=== PATIENT | male | born 1955 | race Two or more races ===

== ENCOUNTER 2024-10-16 12:11 | Emergency (ER) | payer SELFPAY ==
[2024-10-16 12:39] VITALS: BP 167/113; BP 170/103; PULSE 71; RESP 18; TEMP 37.3; O2SAT 99; BMI 33.7
--- NOTE | 2024-10-16 13:05 | XR_ITS ---
Examination: PA lateral chest 2 views Technique: Upright PA lateral chest 2 views Exam date and time: October 16, 2024 1523 hrs. Comparison November 04, 2020 Indications: Chest pain abdominal pain beginning 2 days ago. Findings: Mild prominence of ventricle Ectatic thoracic aorta. No pneumonia or pulmonary edema Moderate thoracic spondylosis Impression: No pneumonia or pulmonary edema
--- NOTE | 2024-10-16 13:05 | EKG_ITS ---
[facility] Test Date: 2024-10-16 Pat Name: NIR FERRODepartment: Room: - Gender: Male Respiratory Assistant: : 1955 Requested By: Cony Sheikh ([facility]) Ernesto Order Number: [id number] Reading MD: Cony Sheikh ([facility]) Ernesto Measurements Intervals [place] Rate: 63 P: 98 MA: 180 QRS: -6 QRSD: 146 T: -14 QT: 423 QTc: 436 Interpretive Statements SINUS RHYTHM RIGHT BUNDLE BRANCH BLOCK [120+ ms QRS DURATION, UPRIGHT V1, 40+ ms S IN I/aVL/V4/V5/V6] Compared to ECG 07/30/2023 10:40:33 No significant changes /store/S0/[id number]/ecg/[id number].pdf
--- NOTE | 2024-10-16 13:06 | EDRME_ITS ---
Rapid Medical Screening Exam RME Arrival date/time: 10/16/24 12:11 This is a 69-year-old male presents emergency department with epigastric abdominal pain I have greeted and performed a focused initial assessment of this patient. Initial appropriate labs ordered at this time. A comprehensive ED assessment a nd evaluation of the patient and analysis of all test and completion of medical decision making process will be conducted by additional ED provider. Chief Complaint: Abdominal Pain Time Seen by Provider: 10/16/24 12:40 Vital signs: Vital Signs Temperature 99.1 F 10/16/24 12:39 Pulse Rate 71 10/16/24 12:39 Respiratory Rate 18 10/16/24 12:39 Blood Pressure 167/113 H 10/16/24 12:39 Pulse Oximetry (%) 99 10/16/24 12:39 Oxygen Delivery Method Room Air 10/16/24 12:39
[2024-10-16] MEDS: MG HYD/AL HYD/SIME (Maalox Reg) SUSP 30 ML UDC PO (13:37)
[2024-10-16] MEDS: LIDOCAINE VISCOUS 2% 15 ML UDC PO (13:37)
[2024-10-16 13:38] LABS: Basophils # (Auto) 0.1 Thou/mm3 (0.0-0.2); Basophils % (Auto) 1 % (0-2.5); Eosinophils # (Auto) 0.4 Thou/mm3 (0.0-0.5); Eosinophils % (Auto) 4 % (0-10); Hematocrit 40.8 % (41.0-53.0); Hemoglobin 13.2 g/dL (13.5-16.0); Immature Granulocytes % (Auto) 1 % (0-0); Immature Granulocytes Auto 0.05 Thou/mm3 (0.00-0.00); Lymphocytes # (Auto) 2.5 Thou/mm3 (1.0-4.8); Lymphocytes % (Auto) 25 % (10-50); Mean Corpuscular HGB Conc 32.4 g/dl (31.0-37.0); Mean Corpuscular Hemoglobin 24.4 pg (25.0-35.0); Mean Corpuscular Volume 76 fL (80-100); Monocytes % (Auto) 10 % (0-12); Neutrophils # (Auto) 6.1 Thou/mm3 (1.8-7.7); Neutrophils % (Auto) 60 % (37-80); Nucleated Red Blood Cell % 0 /100 WBC (0); Platelet Count 212 Thou/mm3 (140-440); RDW Standard Deviation 44.4 fL (35.1-43.9); White Blood Count 10.1 Thou/mm3 (3.8-10.6)
[2024-10-16 13:50] LABS: Collection Type, Urine Clean Catch
[2024-10-16 13:58] LABS: Bilirubin,Urine Negative (Negative); Blood,Urine Negative (Negative); Clarity,Urine Clear (Clear/Hazy); Color,Urine Lt-Yellow (Lt Yel-Yel); Glucose, Urine Negative (Negative); Ketones,Urine Negative (Negative); Leukocyte Esterase,Urine Negative (Negative); Nitrite,Urine Negative (Negative); Protein,Urine Negative (Neg - Trace); RBC,Urine 1 /hpf (0-3); Specific Gravity,Urine 1.017 (1.001-1.035); Squamous Epithelial Cell,Urine < 1 /hpf (0-5); Urobilinogen,Urine Negative mg/dL (0.0-1.0); WBC,Urine 2 /hpf (0-5)
[2024-10-16 14:11] LABS: Alanine Aminotransferase 19 U/L (10-49); Albumin, Serum 4.1 gm/dL (3.4-4.8); Albumin/Globulin Ratio 1.2 (1.2-2.2); Alkaline Phosphatase 110 U/L (46-116); Anion Gap 10 (7-16); Aspartate Amino Transferase 29 U/L (0-34); BUN/Creatinine Ratio 15 Ratio (12-20); Bilirubin,Total 0.4 mg/dL (0.3-1.2); Blood Urea Nitrogen 12 mg/dL (9-23); Calcium 9.1 mg/dL (8.3-10.6); Calcium (Corrected) 9.1 mg/dL (8.5-10.1); Carbon Dioxide 25.3 mMol/L (20.0-31.0); Chloride 104 mMol/L (98-107); Creatinine (Component) 0.8 mg/dL (0.6-1.3); Estimated Creatinine Clearance 90.3 mL/min (>60); Globulin 3.3 gm/dL (2.3-3.5); Glucose 125 mg/dL (74-106); Lipase 40 U/L (12-53); Osmolality,Calculated 278 (275-295); Potassium 3.8 mMol/L (3.4-5.1); Sodium 139 mMol/L (136-145); Total Protein 7.4 gm/dL (5.7-8.2); Troponin I < 0.002 ng/mL (0.0-0.045); eGFR > 60 See Note
--- NOTE | 2024-10-16 16:22 | PD.EDABDPN ---
ED Abdominal Pain RME/HPI General Chief Complaint: Abdominal Pain Stated complaint: ABDOMINAL PAIN Time seen by provider: 10/16/24 12:40 Arrival date/time: 10/16/24 12:11 RME / HPI RME / HPI narrative: 69-year-old male patient with significant history of arthritis of the knee, currently taking indomethacin, came in for evaluation regarding epigastric pain. Onset of symptoms for the last few days described as burning-like sensation, severity mild. Denies any vomiting denies any blood in the stool. No medication was taken prior to arrival. Related Data Home Medications ?Medication ?Instructions ?Recorded ?Confirmed atorvastatin 20 mg tablet 20 mg PO DAILY 08/05/23 04/30/24 celecoxib 200 mg capsule 200 mg PO DAILY 08/05/23 04/30/24 lisinopril 40 mg tablet 40 mg PO DAILY 08/05/23 04/30/24 Previous Rx's ?Medication ?Instructions ?Recorded meloxicam 7.5 mg tablet 7.5 mg PO QDAY #20 tabs 06/07/23 doxycycline hyclate 100 mg tablet 100 mg PO BID #14 tabs 08/07/23 gabapentin 300 mg capsule 300 mg PO .qhs #30 caps 08/07/23 meloxicam 7.5 mg tablet 7.5 mg PO QDAY #45 tabs 12/26/23 pregabalin 75 mg capsule 75 mg PO BID #30 caps 12/26/23 pantoprazole 40 mg tablet,delayed 40 mg PO QDAY #30 tabs 10/16/24 release (Protonix) Allergies Allergy/AdvReac Type Severity Reaction Status Date / Time No Known Allergies Allergy Verified 10/16/24 12:14 Review of Systems Review of Systems Narrative Review of Systems: Review of system reviewed and within normal limits except mentioned in HPI ED Exam Narrative Physical exam: VITAL SIGNS: Reviewed. GENERAL APPEARANCE: Alert and interactive, follows commands, no acute distress, HEAD AND FACE: Non-traumatic. ENT: PERRL, pink conjunctivitis, eyelid no trauma, Mucous membrane moist. NECK: Supple, nontender, no nuchal rigidity. CHEST: No tenderness, no crepitus, no paradoxical movement, no retractions. LUNGS: Clear, well ventilated, symmetric, no rales, no wheezing, no ronchi, no stridor, good breath sounds bilaterally. HEART: Regular rate, regular rhythm, no murmur, no gallops. ABDOMEN: Soft, positive bowel sounds, nondistended, no guarding, epigastric tenderness, no rebound, no masses, RECTAL: Deferred. GENITAL: Deferred. NEUROLOGICAL: Gross motor function intact sensory function intact, Appropriate for age. MUSCULOSKELETAL: low back nontender, full range of motion. EXTREMITIES: Nontender, full range of motion. SKIN: Color pink, dry, no rash, no lacerations, no abrasions, no contusions. LYMPHATICS: Deferred. Course Quality Measures none Orders Category Date Time Status EKG (ED ONLY) *Do not use* NOW Care 10/16/24 13:05 Completed NPO STAT Care 10/16/24 13:05 Active EKG (ED Only) Stat Exams 10/16/24 13:05 Draft XR chest 2V Stat Exams 10/16/24 13:05 Completed CBC Stat Lab 10/16/24 13:18 Completed Comprehensive Metabolic Panel Stat Lab 10/16/24 13:18 Completed Lipase Stat Lab 10/16/24 13:18 Completed Troponin I Stat Lab 10/16/24 13:18 Completed Urinalysis Stat Lab 10/16/24 13:33 Completed Lidocaine 2% Viscous [Xylocaine 2% Viscous] Med 10/16/24 13:05 Discontinued 15 ml PO X1 ONE mg Hyd/Al Hyd/Joanne Susp [Maalox Susp] Med 10/16/24 13:05 Discontinued 30 ml PO X1 ONE Vital Signs Vital signs: Vital Signs Temperature 99.1 F 10/16/24 12:39 Pulse Rate 71 10/16/24 12:39 Respiratory Rate 18 10/16/24 12:39 Blood Pressure 167/113 H 10/16/24 12:39 Pulse Oximetry (%) 99 10/16/24 12:39 Oxygen Delivery Method Room Air 10/16/24 12:39 Abdominal Pain MDM MDM Narrative MDM Narrative:: 69-year-old male patient with significant history of arthritis of the knee, currently taking indomethacin, came in for evaluation regarding epigastric pain. Onset of symptoms for the last few days described as burning-like sensation, severity mild. Denies any vomiting denies any blood in the stool. No medication was taken prior to arrival. His workup today all came back normal lipase is normal urinalysis normal chest x-ray also came back unremarkable EKG showed normal sinus rhythm, ventricular rate of [address] segment elevation depression noted. Patient appears nontoxic and hemodynamically stable. Patient discharged home and instructed to follow-up with primary care provider in 24 to 48 hours. Instructed to return to the emergency department immediately if worsening of symptoms Patient was advised to stop taking indomethacin and follow-up with PCP for different medication for arthritis. Patient data External records reviewed:: None Clinical information provided by:: patient Social determinants that could affect healthcare access:: none Patient has the following chronic illnesses:: Knee arthritis How is presenting disease/condition affected by chronic disease/condition?: exacerbated by Evaluation data The following diagnostics were reviewed and interpreted by me:: lab results, radiology exam(s) and EKG tracing(s) Lab and/or radiology exams considered but not ordered:: None Interpretation Summary: See results in [facility] Medications / Prescriptions Medications or Prescriptions considered but not ordered:: None Medication administrations:: Medication Administration History Discontinued Medications Al Hydrox/Mg Hydrox/Simethicone (Mg Hyd/Al Hyd/Joanne (Maalox Reg) Susp 30 Ml Udc) 30 ml PO X1 ONE Stop: 10/16/24 13:06 Last Admin: 10/16/24 13:37 Dose: 30 ml Documented By: [facility] Lidocaine HCl (Lidocaine Viscous 2% 15 Ml Udc) 15 ml PO X1 ONE Stop: 10/16/24 13:06 Last Admin: 10/16/24 13:37 Dose: 15 ml Documented By: [facility]AS[facility] GI cocktail Consultations Consultation(s) initiated? (list below): No Diagnosis Differential diagnosis abdominal pain: abdominal pain and pancreatitis Most likely diagnosis given after review of the tests above:: Gastritis NSAID induced Admission Indicated Admission indicated?: not indicated Admission Request Was there a request for admission?: No Disposition Plan Disposition Plan: Discharge Discharge Attestation Discharge Attestation: The patient and all family members were given an opportunity to ask questions and understood the discharge instructions. Discharge instructions specifically effects, indications for sooner follow up or return to the emergency department, and the expected course of current diagnosis. Patient condition: Stable Discharge Plan Plan Patient Disposition: HOME (Self Care) Disposition Comment: stable Prescriptions/Referrals Prescriptions/Med Rec: New pantoprazole [Protonix] 40 mg tablet,delayed release (DR/EC) 40 mg PO QDAY Qty: 30 0RF No Action meloxicam 7.5 mg tablet 7.5 mg PO QDAY Qty: 45 3RF pregabalin 75 mg capsule 75 mg PO BID Qty: 30 0RF meloxicam 7.5 mg tablet 7.5 mg PO QDAY Qty: 20 0RF celecoxib 200 mg capsule 200 mg PO DAILY Patient Comments: TAKE 1 CAPSULE BY MOUTH EVERY DAY atorvastatin 20 mg tablet 20 mg PO DAILY Patient Comments: TAKE 1 TABLET BY MOUTH EVERY DAY DIRECTED lisinopril 40 mg tablet 40 mg PO DAILY Patient Comments: TAKE 1 TABLET BY MOUTH EVERY DAY gabapentin 300 mg capsule 300 mg PO .qhs Qty: 30 0RF doxycycline hyclate 100 mg tablet 100 mg PO BID Qty: 14 0RF Problem List Clinical Impression: NSAID induced gastritis Patient/Caregiver Discharge Instructions Discharge Activity: activity as tolerated Education Materials: ED Gastritis (Adult) Additional Instructions: Thank you for the opportunity for serving you today. You are stable for discharged . You are advised to: Follow-up with your PCP in 1 to 2 days Return to ED for worsening of symptoms Increase oral fluids Take medication as prescribed Print Language: Palauan Stand Alone Forms: Melly Award Info., Patient Portal Info Letter KAROL/ROSA Supervising Physician KAROL/ROSA Supervising Physician: MD Melissa
== END 2024-10-16 16:50 | disposition home or self-care (01) ==
PROVIDERS: Nurse Practitioner Primary Care; Emergency Provider Emergency Medicine
DX: K29.60 Other gastritis without bleeding (principal); T39.395A Adverse effect of other nonsteroidal anti-inflammatory drugs [NSAID], initial encounter; M17.9 Osteoarthritis of knee, unspecified
CPT/HCPCS: 36415; 71046; 80053; 81001; 83690; 84484; 85025; 93005; 99283; J3490; A9270